=== PATIENT | male | born 1995 | race Caucasian/White ===

== ENCOUNTER 2016-06-06 14:14 | Emergency (ER) | payer OTHER ==
--- NOTE | 2016-06-06 14:22 | EDM.PDOC ---
ED HPI Trauma - General Chief Complaint: Upper Extremity Injury/Pain Stated Complaint: SHOULDER Time Seen by Provider: 06/06/16 14:21 Source: Reports: Patient, RN, RN notes reviewed History Limitations: Reports: No limitations - History of Present Illness INITIAL COMMENTS - FREE TEXT/NARRATIVE: Pt c/o onset of severe Rt shoulder pain while scraping ice off of a windshield while at work today. Pt states he heard a pop in the shoulder at the time of onset of the pain. Denies any other injury. Denies radiating pain. Symptom Onset Date: 06/06/16 Occurred Where: work Severity: moderate Pain/Injury Location: Reports: upper extremity, right Consciousness: Reports: no loss of consciousness Associated Symptoms: Reports: no other symptoms Allergies/ADRs: Allergies No Known Allergies Allergy (Verified 12/19/15 00:57) Home Medications: Ambulatory Orders . [No Known Home Meds] 12/19/15 [Confirmed 12/19/15] Past Medical History - Past Health History Medical/Surgical History: Denies Medical/Surgical History Social & Family History - Family History Family Medical History: Noncontributory - Tobacco Use Smoking Status *Q: Current Every Day Smoker Years of Tobacco use: 7 Packs/Tins Daily: 1 - Caffeine Use Caffeine Use: Reports: Coffee, Energy drinks, Soda, Tea - Recreational Drug Use Recreational Drug Use: No - Living Situation & Occupation Occupation: employed Review of Systems - Review of Systems Review Of Systems: ROS reveals no pertinent complaints other than HPI. Trauma Exam - Physical Exam Exam: See Below Exam Limited By: No limitations General Appearance: Reports: alert, WD/WN, no apparent distress Head: Reports: atraumatic Throat/Mouth: Reports: Normal voice, No airway compromise Neck: Reports: non-tender, full range of motion, normal alignment, normal inspection Respiratory Exam: Reports: no respiratory distress, lungs clear, normal breath sounds Cardiovascular: Reports: normal peripheral pulses Back: Reports: full range of motion, normal inspection, non-tender Extremities: Reports: no evidence of injury, pain with movement (Rt shoulder, decreased ROM due to pain), tenderness (overlying Rt AC joint). Denies: bony- point tenderness Neurologic: Reports: no motor/sensory deficits, alert, normal mood/affect, oriented x 3 Skin: Reports: Normal color, Warm/dry Course - Vital Signs Last Recorded V/S: Last Vital Signs Temp 36.4 C 06/06/16 14:30 Pulse 99 06/06/16 14:30 Resp 16 06/06/16 14:30 BP 141/91 H 06/06/16 14:30 Pulse Ox 100 06/06/16 14:30 - Orders/Labs/Meds Orders: Active Orders 24 hr Category Date Time Status DME for Discharge [COMM] Routine Oth 06/06/16 15:13 Ordered - Radiology Interpretation Free Text/Narrative:: Xray Rt shoulder: mild AC joint widening, no fractures, see Rad. report. CT Results Date: 06/06/16 Departure - Departure Time of Disposition: 15:15 Disposition: Home, Self-Care 01 Condition: good Clinical Impression: Work related injury Acromioclavicular joint separation, type 1 Qualifiers: Encounter type: initial encounter Laterality: right Qualified Code(s): S43.101A - Unspecified dislocation of right acromioclavicular joint, initial encounter Instructions: Acromioclavicular Separation With Rehab-SportsMed Referrals: PCP,None [Primary Care Provider] - Forms: ED Department Discharge Additional Instructions: Rx: Ibuprofen 800mg Rest, and ice packs to right shoulder. Wear shoulder sling as needed for comfort, but remove from the sling once every hour for 15 minutes to maintain range of motion. Follow up in clinic in 1 week for recheck. - My Orders Last 24 Hours: My Active Orders 06/06/16 15:13 DME for Discharge [COMM] Routine - Assessment/Plan Last 24 Hours: My Active Orders 06/06/16 15:13 DME for Discharge [COMM] Routine
[2016-06-06 14:32] VITALS: BP 141/91
--- NOTE | 2016-06-06 14:49 | CR ---
Clinical history: 20-year-old male experienced right shoulder "pop". Interpretation: Subtle diastases at the acromioclavicular joint and elevation distal clavicle suggesting possible mi ld or first-degree separation. Clinical? No sign of pathologic skeletal lesion, right shoulder fracture or acute glenohumeral dislocation. Right lung apex is clear. CONCLUSION: "Soft" finding right AC joint. (see above)
== END 2016-06-06 15:30 | disposition home or self-care (01) ==
LOC: DL.ED 14:14
DX: S43.101A Unspecified dislocation of right acromioclavicular joint, initial encounter (principal); F17.210 Nicotine dependence, cigarettes, uncomplicated; W00.9XXA Unspecified fall due to ice and snow, initial encounter; Y99.0 Civilian activity done for income or pay
CPT/HCPCS: 73030-RT; 99283

== ENCOUNTER 2016-12-04 20:54 | Emergency (ER) | payer SELFPAY ==
[2016-12-04 21:10] VITALS: BP 143/73
[2016-12-04 21:49] LABS: CHLORIDE,CL 101 mmol/L (101-111); SODIUM,NA 139 mmol/L (135-145)
--- NOTE | 2016-12-07 10:52 | EKG ---
12/04/2016 - MARCIE REYNOSO - This 12-lead EKG, shows a normal sinus rhythm with a ventricular rate of 94. Normal axis and intervals. No acute ST-segment or T-wave changes. [facility] /[id number]
== END 2016-12-04 22:27 | disposition left against medical advice (07) ==
LOC: DL.ED 20:54
DX: Z53.21 Procedure and treatment not carried out due to patient leaving prior to being seen by health care provider (principal); R07.9 Chest pain, unspecified; R51 Headache
CPT/HCPCS: 36415; 80053; 84484; 85025; 93005; 93010; 99284

== ENCOUNTER 2017-02-28 19:40 | Emergency (ER) | payer OTHER ==
[2017-02-28] MEDS ORDERED: Diphtheria,Pertussis(Acell),Tetanus Vaccine 0.5 ML SDV IM ONE (19:51)
[2017-02-28] MEDS ORDERED: Lidocaine 1% 30 ML SDV INJECT ONE (19:51)
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
[2017-02-28 20:23] VITALS: BP 148/82
== END 2017-02-28 20:26 | disposition home or self-care (01) ==
LOC: DL.ED 19:40
DX: S91.012A Laceration without foreign body, left ankle, initial encounter (principal); F17.210 Nicotine dependence, cigarettes, uncomplicated; Z23 Encounter for immunization; X58.XXXA Exposure to other specified factors, initial encounter
CPT/HCPCS: 12002; 90471; 90715; 99283